=== PATIENT | female | born 2000 | race Caucasian/White ===

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

== ENCOUNTER → 2021-08-06 12:52 | Outpatient (CLI) | payer OTHER, BC, SELFPAY ==
--- NOTE | 2021-08-06 13:00 | FL_ITS ---
FINAL REPORT CLINICAL HISTORY: DYSPHAGIA,WEIGHT LOSS,ANXIETY FINDINGS: MODIFIED BARIUM SWALLOW HISTORY : Dysphagia. FINDINGS: Fluoroscopy was provided for the speech pathologist to evaluate the swallowing mechanism. The patient was given several different consistencies of barium while the swallow was visualized fluoroscopically. The report of the speech pathologist should be consulted prior to making dietary decisions. IMPRESSION: Modified barium swallow under fluoroscopic guidance. Please see speech pathologist's report for further details and dietary recommendations. Fluoroscopy time was 2.01 minutes. 12 cine runs were saved. Reviewed, Interpreted and Dictated by Paul Ferrer MD Transcribed by Mariah De PA-C Authenticated by Paul Ferrer MD on 08/08/2021 08:31:56 AM [facility]
--- NOTE | 2021-08-06 13:55 | HMH.SLMBS2 ---
Speech & Language Evaluation Speech/Language Mod Barium Swallow Start: 08/06/21 13:46 Freq: once Status: Complete Protocol: Document 08/06/21 13:46 JOSE (Rec: 08/06/21 13:55 JOSE [id number]) General Information General Current Food Consistancy Regular,Thin Liquids Dentition Good Dentition Oxygen Status Room Air Facial Symmetry Symmetrical Patient Orientation Person,Place,Time,Situation Ability to Follow Directions Excellent Communication Ability No Impairment MBS Recommendations Diet Dietary Recommendations Regular,Thin Liquids Treatment/Strategies Strategy/Precaution Recommend Sitting Upright (90 deg),Small Bites and Sips,Alternate Liquids/Solids Mod Barium Swallow Impressions Summary and Impressions Oral Phase Impression No Impairment (WFL) Oral Phase Summary Ms. Morgan was given the following consistencies: this via straw and open cup, pudding, mechanical soft, regular, and 1/2 pill with thin wash. No oral phase impairments were noted. Pharyngeal Phase Impression No Impairment (WFL) Pharyngeal Phase Summary No pharyngeal phase impairments noted. Speech/Language MBS Assessment/Goals/Plan Assessment Date of Evaluation: 08/06/21 Evaluation Type Initial Certification Assessment/Problems Dysphagia Does Patient Qualify for Service No Qualify/Failure Comment No overt signs and symptoms of dysphagia were noted during the evaluation. Recommendations PHYSICIAN CERTIFICATION: The specified therapy services are required, authorized, and reviewed every 30 days. Diet Recommendations Normal Liquid Type Recommendations Normal/Thin Crush Meds Small OK/Crush large pill, Crush lge pills w/applesa Dysphagia Swallow Precautions/Strategies Sitting Upright (90 deg),Small Bites and Sips,Alternate Liquids/Solids Additional Consults Recommended Other Comment Dietition counseling would be beneficial. Plan Pt/Guardian verbally ack understanding Yes of dx/prognosis/goals G -code Required No Mod Barium Swallow Setup Exam Setup Radiologist Mack [place] Level of Consciousness Awake,Alert,Appropriate, Follows Commands Position (degrees) 90 Mod Barium Swallow-Lat View Textures Lateral View Food
== END ==
PROVIDERS: PCP Internal Medicine; Visit Provider Internal Medicine
DX: R13.10 Dysphagia, unspecified (principal); R63.4 Abnormal weight loss; F41.9 Anxiety disorder, unspecified
CPT/HCPCS: 70371; 92611

== ENCOUNTER 2021-08-11 07:48 | Emergency (ER) | payer OTHER, BC, SELFPAY ==
[2021-08-11 07:50] VITALS: BP 158/94; PULSE 131; RESP 20; TEMP 36.9; O2SAT 96; BMI 21.6
[2021-08-11 07:56] VITALS: BP 158/94; PULSE 123; RESP 20; TEMP 36.9; O2SAT 95
--- NOTE | 2021-08-11 08:01 | HMH.EDGENADL ---
ED Disposition Clinical Impression: Dysphagia Disposition: Home, Self-Care Condition on Discharge: Good Instructions: DI for Oropharyngeal Dysphagia Additional Instructions: follow up ENT call return for worsening condition or any concerns Referrals: Philip Lopez [Primary Care Provider] - - Critical Care Critical Care Time: No Attestation: On 08/11/21, the high probability of a clinically significant, sudden or life threatening deterioration of the following system(s) required my full and direct attention, intervention and personal management. The time I documented below is in addition to time spent performing reported procedures but includes the following listed in this critical care notation. Medical Decision Making - Medical Records Medical records reviewed: Yes: I reviewed the patient's medical records. - Luciano Inquiry Pt receiving controlled substance: No Vital Signs: 08/11/21 07:50 08/11/21 07:56 08/11/21 08:50 Temperature 98.4 F 98.5 F Temperature Source Oral Oral Pulse Rate 123 H Pulse Rate [Right Radial] 131 H Respiratory Rate 20 20 Blood Pressure 158/94 H Blood Pressure [Right Arm] 158/94 H Blood Pressure Mean [Right Arm] 115 Blood Pressure Source [Right Arm] Automatic Cuff Blood Pressure Position [Right Arm] Sitting 02 Sat by Pulse Oximetry 96 95 97 Oxygen Delivery Method Room Air Room Air Room Air - Lab Data Lab Results 08/11/21 08:06: WBC 4.3 L, RBC 5.51 H, Hgb 16.5 H, Hct 50.6 H, MCV 91.7, MCH 29.8, MCHC 32.5, RDW 13.2, Plt Count 225, MPV 9.4, Neut % (Auto) 65.6, Lymph % (Auto) 23.0, [facility] % (Auto) 6.1, Eos % (Auto) 2.3, Baso % (Auto) 2.9 H, Neut # (Auto) 2.8, Lymph # (Auto) 1.0, [facility] # (Auto) 0.3, Eos # (Auto) 0.1, Baso # (Auto) 0.1 08/11/21 08:06: Sodium 145, Potassium 3.6, Chloride 103, Carbon Dioxide 20 L, Anion Gap 25.6 H, BUN 16, Creatinine 0.70, Estimated Creat Clear 115, Estimated GFR 106, Est GFR ( Amer) 128, Glucose 89, Calcium 9.9, Total Bilirubin 2.5 H, AST 123 H, ALT 49, Alkaline Phosphatase 238 H, Total Protein 9.1 H, Albumin 5.6 H, Globulin 3.5 H, Albumin/Globulin Ratio 1.6 Result diagrams: 08/11/21 08:06 08/11/21 08:06 Orders (Tests/Meds): ED MEDICATIONS Generic Name Dose Route Start Last Admin Trade Name Freq PRN Reason Stop Dose Admin Sodium Chloride 1,000 mls @ 999 mls/hr 08/11/21 08:45 08/11/21 08:47 Sod Chlor 0.9% 1000ml Bag IV 08/11/21 09:45 999 mls/hr .Q1H1M [place] Administration Medical Decision Narrative: reeval, appears well, cornelius soda and popsicle, ok with plan to f/u ent General Adult HPI - General Stated complaint: unable to eat, throat swollen, dehydrated Time Seen by Provider: 08/11/21 08:01 - History of Present Illness HPI narrative: c/o diff swall several weeks, seen pcp had swallow barium syudy neg, today diff swall again Radiation: non-radiation Severity: moderate Quality: constant Consistency: intermittent Relieving factors: none Exacerbating factors: none Associated symptoms: denies other symptoms - Related Data Home Medications Medication Instructions Recorded Confirmed etonogestrel 68 mg subdermal SUBDERMAL each 07/20/18 07/20/18 implant Previous Rx's Medication Instructions Recorded oseltamivir 75 mg capsule 75 mg PO BID 5 Days #10 cap 07/07/19 Allergies Allergy/AdvReac Type Severity Reaction Status Date / Time No Known Allergies Allergy Verified 07/07/19 15:39 [facility] History - Hepatitis A Screen Attestation statement:: This patient has been screened for Hepatitis A risk factors. Other Surgeries: Yes: No Previous Surgery Amputation: No Fractures: No - Social History Smoking Status: Never smoker Alcohol Intake: never Substance Use Type: denies use Occupational Status: student Housing: house Household Members: family Family Hx:: No significant family history ROS Obtained: Yes All systems reviewed & no additional complaints
[2021-08-11 08:19] LABS: Basophils # 0.1 K/mm3 (0-0.2); Basophils % 2.9 % (0.1-2.0); Eosinophils # 0.1 K/mm3 (0.0-0.4); Eosinophils % 2.3 % (0.1-12.0); Hematocrit 50.6 % (37.0-47.0); Hemoglobin 16.5 g/dL (12.2-16.2); Mean Corpuscular HGB Conc 32.5 g/dL (31.8-35.4); Mean Corpuscular Hemoglobin 29.8 pg (27.0-31.2); Mean Corpuscular Volume 91.7 fl (81-99); Mean Platelet Volume 9.4 fl (7.4-10.4); Monocytes # 0.3 K/mm3 (0.1-1.0); Monocytes % 6.1 % (1.7-9.3); Neutrophils # 2.8 K/mm3 (1.8-7.8); Neutrophils % 65.6 % (37.0-80.0); Platelet Count 225 K/mm3 (142-424); Red Blood Count 5.51 M/mm3 (4.20-5.40); Red Cell Distribution Width 13.2 % (11.5-17.5); White Blood Count 4.3 K/mm3 (4.8-10.8)
[2021-08-11 08:29] LABS: Alanine Aminotransferase 49 U/L (12-78); Albumin Level 5.6 g/dl (3.5-5.0); Albumin/Globulin Ratio 1.6 (1.1-1.8); Alkaline Phosphatase 238 U/L (38-126); Anion Gap 25.6 mEq/L (5-15); Aspartate Amino Transferase 123 U/L (14-36); Bilirubin,Total 2.5 mg/dl (0.2-1.3); Blood Urea Nitrogen 16 mg/dl (7-17); Calcium 9.9 mg/dl (8.4-10.2); Carbon Dioxide 20 mmol/L (22.0-30.0); Chloride 103 mmol/L (98-107); Creatinine Clearance Estimated 115 mL/min (50-200); Estimated Glomerular Filt Rate 106 ml/min (>60); GFR (African American) 128 ML/MIN (>60); Globulin 3.5 g/dL (1.3-3.2); Glucose 89 mg/dl (74-100); Potassium 3.6 mmoL/L (3.5-5.1); Sodium 145 mmol/L (136-145); Total Protein,Serum 9.1 g/dl (6.3-8.2)
[2021-08-11 08:50] VITALS: O2SAT 97
[2021-08-11 10:06] VITALS: BP 132/67; PULSE 98; RESP 16; TEMP 36.9; O2SAT 99
== END 2021-08-11 10:08 | disposition home or self-care (01) ==
PROVIDERS: Emergency Provider Emergency Medicine; PCP Internal Medicine
DX: R13.10 Dysphagia, unspecified (principal); K22.4 Dyskinesia of esophagus
CPT/HCPCS: 80053; 85025; 96365; 99282

== ENCOUNTER 2021-08-12 21:11 | Emergency (ER) | payer OTHER, BC, SELFPAY ==
[2021-08-12 21:14] VITALS: BP 140/81; PULSE 85; RESP 14; TEMP 36.7; O2SAT 97; BMI 21.6
--- NOTE | 2021-08-12 21:40 | XR_ITS ---
PROCEDURE INFORMATION: Exam: XR Soft Tissue Neck Exam date and time: 08/12/2021 9:40 PM Age: 20 years old Clinical indication: Dysphagia / difficulty swallowing TECHNIQUE: Imaging protocol: XR of the soft tissues of the neck. COMPARISON: RF FL BARIUM SWALLOW MODIFIED 08/06/2021 1:08 PM FINDINGS: Airway: Normal. No abnormal narrowing. Soft tissues: Normal. Normal epiglottis. Bones/joints: Unremarkable. IMPRESSION: No acute findings.
--- NOTE | 2021-08-12 22:24 | HMH.EDGENADL ---
ED Disposition Clinical Impression: Esophageal dysmotility Disposition: Home, Self-Care Condition on Discharge: Good Instructions: DI for Esophageal Dysphagia Additional Instructions: Please follow up with your primary care physician in 2-3 days for further management. Please also keep your appointment with your flue tile press operator. Please continue to eat pureed food. Please return if worsening swallowing, difficulty breathing, chest pain or any other concerning symptoms. Prescriptions: Ondansetron [Zofran 4mg ODT] 4 mg PO TIDP PRN #15 tab PRN Reason: Nausea Transmission Status: Received by [facility] Referrals: Philip Lopez [Primary Care Provider] - Time of Disposition: 23:40 - Critical Care Critical Care Time: No Attestation: On 08/12/21, the high probability of a clinically significant, sudden or life threatening deterioration of the following system(s) required my full and direct attention, intervention and personal management. The time I documented below is in addition to time spent performing reported procedures but includes the following listed in this critical care notation. Medical Decision Making - Medical Records Medical records reviewed: Yes: I reviewed the patient's medical records. - Luciano Inquiry Pt receiving controlled substance: No Vital Signs: 08/12/21 21:14 08/12/21 23:37 Temperature 98.0 F 98.1 F Temperature Source Oral Oral Pulse Rate 80 Pulse Rate [Right Radial] 85 Respiratory Rate 14 16 Blood Pressure 121/65 Blood Pressure [Right Arm] 140/81 Blood Pressure Mean [Right Arm] 100 Blood Pressure Source Automatic Cuff Blood Pressure Source [Right Arm] Automatic Cuff Blood Pressure Position Sitting Blood Pressure Position [Right Arm] Supine 02 Sat by Pulse Oximetry 97 Oxygen Delivery Method Room Air Room Air - Lab Data Lab results reviewed: Yes: I reviewed the patient's lab results. Orders (Tests/Meds): ED MEDICATIONS Discontinued Medications Generic Name Dose Route Start Last Admin Trade Name Freq PRN Reason Stop Dose Admin Sodium Chloride 1,000 mls @ 999 mls/hr 08/12/21 21:45 08/12/21 21:53 Sod Chlor 0.9% 1000ml Bag IV 08/12/21 22:45 999 mls/hr .Q1H1M [place] Administration Ondansetron HCl 4 mg 08/12/21 21:40 08/12/21 21:53 Ondansetron 4mg/2ml Vial IV 08/12/21 21:41 4 mg ONCE ONE Administration Medical Decision Narrative: Miss Morgan is a 20 yo female w/ no significant PMH who presents to the ED for dysphagia since Jun 2021. Patient is afebrile and hemodynamically stable on arrival. Patient physical exam: benign patient is non toxic appearing, full ROM neck, uvula midline, neck non painful to palpation, moist mucous memrbanes, cap refill <2 no signs of clinical dehydration. Patient denies any pain, but rather difficulty swallowing. No dyspnea. No bolus sensation. EGD scope from yesterday showed no obstructive process per patients. Differentials to consider but not limited to include achlasia, esophageal spasms, esophagitis, autonomic diseases (myasthenia etc), psychogenic. XR soft tissue neck is normal. Patient is given 1L IV LR and zofran for comfort. Patient is PO challenged w/ liquids and informed to fu w/ flue tile press operator this week. Patient will also fu w/ her PCP in 2-3 d. Patient instructed to return for difficulty breathing, chest pain, inability to eat and drink or any other concerning symptoms. General Adult HPI - General Chief complaint: Dental/Oral Stated complaint: unable to eat or drink x 3 weeks,? dehydrated Time Seen by Provider: 08/12/21 21:15 Mode of Arrival: Ambulatory Source of Information: Patient Limitations: No Limitations Description of Symptoms (Recalled from ER Triage Doc. by RN): Pt reports 3 weeks trouble swallowing. Pt was seen by an ENT today and referred to a [employer]. Mother is concerned pt is becoming dehydrated. - History of Present Illness HPI narrative: Mrs. Johnson
[2021-08-12 23:37] VITALS: BP 121/65; PULSE 80; RESP 16; TEMP 36.7; O2SAT 99
== END 2021-08-12 23:42 | disposition home or self-care (01) ==
PROVIDERS: Emergency Provider Student in an Organized Health Care Education/Training Program; PCP Internal Medicine
DX: K22.4 Dyskinesia of esophagus
CPT/HCPCS: 70360; 96365; 96375; 99282; J2405